=== PATIENT | male | born 1995 | race Caucasian/White ===

== ENCOUNTER 2020-02-07 22:17 | Emergency (ER) | payer SELFPAY ==
[2020-02-07] MEDS ORDERED: Albuterol 8 GM Inhaler INH ONE (22:45)
--- NOTE | 2020-02-07 22:48 | EDM.PDOC ---
ED HPI GENERAL MEDICAL PROBLEM - General Chief Complaint: Respiratory Problem Stated Complaint: TROUBLE WITH ASTHMA Time Seen by Provider: 02/07/20 22:42 Source of Information: Reports: Patient, RN Notes Reviewed History Limitations: Reports: No Limitations - History of Present Illness INITIAL COMMENTS - FREE TEXT/NARRATIVE: 24-year-old gentleman presents emergency department a complaint of shortness of breath, known history of asthma usually controlled with albuterol alone unfortunately he forgot his albuterol inhaler at home - Related Data Allergies Allergy/AdvReac Type Severity Reaction Status Date / Time Sulfa (Sulfonamide Allergy Cannot Verified 02/07/20 22:29 Antibiotics) Remember Home Meds: Home Meds Albuterol Sulfate [Albuterol Sulfate Hfa] 8.5 gm IH ASDIRECTED 02/07/20 [History] Past Medical History HEENT History: Reports: Impaired Vision Respiratory History: Reports: Asthma, Pneumonia, Recurrent Musculoskeletal History: Reports: Fracture Psychiatric History: Reports: Depression - Infectious Disease History Infectious Disease History: Reports: Chicken Pox Social & Family History - Tobacco Use Tobacco Use Status *Q: Former Tobacco User Used Tobacco, but Quit: Yes Month/Year Tobacco Last Used: 12/2019 - Caffeine Use Caffeine Use: Reports: Coffee, Energy Drinks, Soda - Alcohol Use Days Per Week of Alcohol Use: 1 Number of Drinks Per Day: 2 Total Drinks Per Week: 2 - Recreational Drug Use Recreational Drug Use: No ED ROS GENERAL - Review of Systems Review Of Systems: See Below Constitutional: Reports: No Symptoms Respiratory: Reports: Shortness of Breath, Wheezing Cardiovascular: Reports: Dyspnea on Exertion ED EXAM, GENERAL - Physical Exam Exam: See Below Exam Limited By: No Limitations General Appearance: Alert, WD/WN, No Apparent Distress Respiratory/Chest: No Respiratory Distress, Decreased Breath Sounds, Wheezing Course - Vital Signs Last Recorded V/S: Last Vital Signs Temp 97.7 F 02/07/20 22:29 Pulse 73 02/07/20 22:29 Resp 18 02/07/20 22:29 BP 137/72 02/07/20 22:29 Pulse Ox 98 02/07/20 22:29 - Orders/Labs/Meds Orders: Active Orders 24 hr Category Date Time Status RT Post Treatment Assessment [RC] Click to Edit Care 02/07/20 22:45 Active Meds: Medications Discontinued Medications Generic Name Dose Route Start Last Admin Trade Name Freq PRN Reason Stop Dose Admin Albuterol 1 gm 02/07/20 22:45 02/07/20 22:51 Ventolin Hfa INH 02/07/20 22:46 4 puff ONETIME ONE Administration Departure - Departure Time of Disposition: 23:12 Disposition: Home, Self-Care 01 Condition: Fair Clinical Impression: Mild intermittent asthma Qualifiers: Asthma complication type: with acute exacerbation Qualified Code(s): J45.21 - Mild intermittent asthma with (acute) exacerbation - Discharge Information Instructions: Asthma Attack Referrals: PCP,None [Primary Care Provider] - Forms: ED Department Discharge Additional Instructions: Take the prednisone 20 mg once a day for the next 5 days continue to use your albuterol inhaler as needed, please follow-up with your primary care provider upon return home for further evaluation Sepsis Event Note (ED) - Evaluation Sepsis Screening Result: No Definite Risk - Focused Exam Vital Signs: Vital Signs Temp Pulse Resp BP Pulse Ox 02/07/20 22:29 97.7 F 73 18 137/72 98 - My Orders Last 24 Hours: My Active Orders 02/07/20 22:45 RT Post Treatment Assessment [RC] Click to Edit - Assessment/Plan Last 24 Hours: My Active Orders 02/07/20 22:45 RT Post Treatment Assessment [RC] Click to Edit Plan: Assessment Acuity = acute Site and laterality = mild intermittent asthma Etiology = unknown Manifestations = wheezing and dyspnea Location of injury = Home Lab values = none Plan Good improvement with albuterol inhaler did add prednisone 20 mg once a day for 5 days follow-up with primary care upon return home for reevaluation This note was dictated using [employer] voice recognition software please call with any questions on syntax or grammar.
== END 2020-02-07 23:19 | disposition home or self-care (01) ==
LOC: JP.ED 22:17
DX: J45.21 Mild intermittent asthma with (acute) exacerbation (principal); Z88.2 Allergy status to sulfonamides; Z87.891 Personal history of nicotine dependence
CPT/HCPCS: 94640; 99284; A9270